=== PATIENT | female | born 1990 | race African-American/Black ===

== ENCOUNTER 2025-04-10 11:21 | Emergency (ER) | payer OTHER ==
[~2025-04-10] VITALS: Ht 180.3 cm; Wt 69.0 kg
[2025-04-10 11:51] VITALS: BP 127/67; PULSE 105; RESP 18; TEMP 97.9; O2SAT 100
[2025-04-10] MEDS: ACETAMINOPHEN 500 MG TABLET PO ONE (12:30)
[2025-04-10] MEDS: IBUPROFEN 600 MG TABLET PO ONE (12:30)
[2025-04-10] MEDS ORDERED: IBUP-1492 PO (12:57)
[2025-04-10] MEDS ORDERED: ACET-3385 PO (12:57)
[2025-04-10] MEDS: BACITRACIN 0.9 GM PACKET OINTMENT TP ONE (13:14)
[2025-04-10] MEDS: PERTUSS(ACELL),DIPH,TET/PF 0.5 ML SYRINGE [ADULT] IM. ONE (13:17)
== END 2025-04-10 13:26 | disposition home or self-care (01) ==
LOC: EMS 11:21
DX: S16.1XXA Strain of muscle, fascia and tendon at neck level, initial encounter (principal); S39.012A Strain of muscle, fascia and tendon of lower back, initial encounter; S90.812A Abrasion, left foot, initial encounter; Z90.49 Acquired absence of other specified parts of digestive tract; V49.40XA Driver injured in collision with unspecified motor vehicles in traffic accident, initial encounter; W22.8XXA Striking against or struck by other objects, initial encounter; Y93.89 Activity, other specified; Y92.410 Unspecified street and highway as the place of occurrence of the external cause; Y99.8 Other external cause status
CPT/HCPCS: 90471; 90715; 99284